=== PATIENT | female | born 1960 | race Caucasian/White ===

== ENCOUNTER 2018-03-29 08:46 | Day surgery (SDC) | payer BC ==
[~2018-03-29] VITALS: Ht 170.2 cm; Wt 82.3 kg
[~2018-03-29 08:46] MED LIST: ALBU90OI INH; ASPI325; ASPI325 PO; BENZ100A PO; BLOOD PRESSURE; CEPH500 PO; DIAZ5 PO; ERYT.5TO BOTHEYES; EZET10-40 PO; GABA300 PO; GUAI120S1 PO; GUAPHELA; HYDACE5 PO; INSR10I; INSUASPI SC; INSULANI; INSULANI SC; IPRA.03NI; LEVASTATIN; LOSA25 PO; METCAR750 PO; METF500 PO; Mucinex600 MG PO; Norco 10-325 T1 EACH PO; OMEP10ER; OMEP10ER PO; OMEP20ER PO; ONDA4ODT MM; OXYACE5T PO; PHENA200 PO; RXERYTOPTH OP; SULTRIDS PO; VALS80; VENL37.5ER PO; VENL75ER PO; ZOLP10 PO; Zanaflex4 MG PO; Zofran Odt4 MG SL
[2018-03-29] MEDS ORDERED: ATOR10 (09:21)
[2018-03-29] MEDS ORDERED: VENL25 (09:21)
[2018-03-29] MEDS ORDERED: ASPI325 (09:22)
[2018-03-29] MEDS ORDERED: Omeprazole20 M1 (09:22)
[2018-03-29] MEDS ORDERED: LOSA25 (09:22)
[2018-03-29] MEDS ORDERED: ZOLP5 (09:22)
[2018-03-29] MEDS ORDERED: INSULANPEN (09:23)
[2018-03-29] MEDS ORDERED: Humalog100 UNIT/1 (09:23)
== END 2018-03-29 10:34 | disposition home or self-care (01) ==
LOC: ORSCSDS 08:46
PROVIDERS: Ophthalmology
PROC: 08RK3JZ Replacement of Left Lens with Synthetic Substitute, Percutaneous Approach (ICD-10-PCS; principal; 2018-03-29 10:00)
DX: H25.12 Age-related nuclear cataract, left eye (principal); E11.9 Type 2 diabetes mellitus without complications; I10 Essential (primary) hypertension; Z79.82 Long term (current) use of aspirin; Z79.4 Long term (current) use of insulin; Z79.899 Other long term (current) drug therapy
CPT/HCPCS: 82947; J2250; J3010; J3301; V2632

== ENCOUNTER 2018-05-19 08:11 | Emergency (ER) | payer OTHER, BC ==
[~2018-05-19] VITALS: Ht 170.2 cm; Wt 74.8 kg
[~2018-05-19 08:11] MED LIST changes: +ATOR10; +Humalog100 UNIT/1; +INSULANPEN; +LOSA25; +Omeprazole20 M1; +VENL25; +ZOLP5
[2018-05-19 08:43] LABS: BASOPHILS ABSOLUTE AUTO 0.08 K/mm3 (0.00-0.23); BASOPHILS PERCENT AUTO 1 % (0-2); EOSINOPHILS ABSOLUTE AUTO 0.24 K/mm3 (0.00-0.68); EOSINOPHILS PERCENT AUTO 3 % (0-6); Hematocrit 39.4 % (33.0-51.0); IMMATURE GRAN ABSOLUTE AUTO 0.02 K/mm3 (0.00-0.10); IMMATURE GRAN PERCENT AUTO 0 % (0-1); LYMPHOCYTES ABSOLUTE AUTO 1.81 K/mm3 (0.84-5.20); LYMPHOCYTES PERCENT AUTO 22 % (21-46); MONOCYTES ABSOLUTE AUTO 0.91 K/mm3 (0.16-1.47); MONOCYTES PERCENT AUTO 11 % (4-13); Mean Corpuscular Volume 91 fL (80-100); Mean Platelet Volume 10.1 fL (9.1-12.4); NEUTROPHILS ABSOLUTE AUTO 5.03 K/mm3 (1.96-9.15); NEUTROPHILS PERCENT AUTO 62 % (41-73); Platelet Count 422 K/mm3 (150-400); RDW Coefficient Variation 12.3 % (11.7-14.2); RDW Standard Deviation 41.1 fL (35.1-46.3); Red Blood Cell Count 4.33 M/mm3 (3.80-5.20); White Blood Cell Count 8.09 K/mm3 (4.00-11.30)
[2018-05-19 09:03] LABS: Alanine Aminotransfer (ALT/SGP 74 U/L (12-78); Albumin, Blood 3.7 g/dL (3.4-5.0); Albumin/Globulin Ratio 0.9 (0.8-1.8); Alk Phos 226 U/L (50-136); Anion Gap 8 mmol/L (6-16); Aspartate Aminotrans (AST/SGOT 61 U/L (12-37); Bilirubin, Total 0.3 mg/dL (0.1-1.0); Blood Urea Nitrogen 12 mg/dL (8-24); Bun/Creatinine Ratio 16.8 (12.0-20.0); CO2, Blood 28 mmol/L (21-32); Calcium, Blood 8.8 mg/dL (8.5-10.1); Chloride, Blood 105 mmol/L (98-108); Creatinine, Blood 0.72 mg/dL (0.40-1.00); Glomerular Filtration Rate >60 (60-); Glucose, Blood 177 mg/dL (70-99); Potassium, Blood 3.9 mmol/L (3.5-5.5); Sodium, Blood 141 mmol/L (136-145); Total Protein, Blood 7.7 g/dL (6.4-8.2); Troponin I <0.015 ng/mL (0.000-0.040)
[2018-05-19] MEDS ORDERED: VENL75ER PO (09:39)
[2018-05-19] MEDS ORDERED: Omeprazole20 M1 PO (09:40)
[2018-05-19] MEDS ORDERED: ZOLP10 PO (09:41)
[2018-05-19] MEDS ORDERED: INSULANPEN (09:41)
[2018-05-19] MEDS ORDERED: LOSA25 PO (09:42)
[2018-05-19] MEDS ORDERED: ATOR80 PO (09:42)
[2018-05-19] MEDS ORDERED: Humalog100 UNIT/1 (09:42)
== END 2018-05-19 11:40 | disposition home or self-care (01) ==
LOC: ER 08:11
PROVIDERS: Physician Assistant
DX: R07.9 Chest pain, unspecified (principal); E11.9 Type 2 diabetes mellitus without complications; I10 Essential (primary) hypertension; K21.9 Gastro-esophageal reflux disease without esophagitis; I25.10 Atherosclerotic heart disease of native coronary artery without angina pectoris; Z88.5 Allergy status to narcotic agent; Z88.8 Allergy status to other drugs, medicaments and biological substances; Z88.1 Allergy status to other antibiotic agents; Z79.899 Other long term (current) drug therapy; Z79.4 Long term (current) use of insulin; Z79.82 Long term (current) use of aspirin
CPT/HCPCS: 36415; 71046; 80053; 84484; 85025; 93005; 93010; 99285-25

== ENCOUNTER 2018-05-31 17:47 | Emergency (ER) | payer OTHER, BC ==
[~2018-05-31] VITALS: Ht 170.2 cm; Wt 72.6 kg
[~2018-05-31 17:47] MED LIST changes: +ATOR80 PO; +Omeprazole20 M1 PO
[2018-05-31] MEDS ORDERED: CYCL10 PO (20:06)
[2018-05-31] MEDS ORDERED: Baclofen10 MG PO (20:15)
== END 2018-05-31 20:18 | disposition home or self-care (01) ==
LOC: ER 17:47
DX: M25.511 Pain in right shoulder (principal); M54.2 Cervicalgia; E11.9 Type 2 diabetes mellitus without complications; I10 Essential (primary) hypertension; E78.5 Hyperlipidemia, unspecified; I25.10 Atherosclerotic heart disease of native coronary artery without angina pectoris; Z88.5 Allergy status to narcotic agent; Z88.1 Allergy status to other antibiotic agents; Z88.8 Allergy status to other drugs, medicaments and biological substances; Z79.899 Other long term (current) drug therapy; Z79.4 Long term (current) use of insulin; V43.62XA Car passenger injured in collision with other type car in traffic accident, initial encounter
CPT/HCPCS: 96372; 99283; J1885